=== PATIENT | female | born 1945 | race Caucasian/White ===

== ENCOUNTER 2019-06-02 08:25 | Outpatient (CLI) | payer MEDICARE, BC, SELFPAY ==
--- NOTE | 2019-06-02 08:40 | MM_ITS ---
WS: [id number] BILATERAL DIGITAL SCREENING MAMMOGRAPHY WITH CAD CLINICAL INFORMATION: SCREENING HISTORY: Screening mammogram. No current complaints. COMPARISON: TECHNIQUE: Bilateral CC and MLO views. FINDINGS: Scattered fibroglandular densities bilaterally. Stable bilateral punctate and clustered calcification s. No suspicious focal mass, asymmetry, calcifications, or architectural distortion. No evidence of m alignancy. MM/[id number] IMPRESSION: BI-RADS: 2-Benign FOLLOW UP: 1 Year Follow-up Recommend return to annual screening mammography.
== END 2019-06-02 08:26 | disposition home or self-care (01) ==
LOC: RADSHAW 08:36
PROVIDERS: Family Provider Family Medicine; PCP Family Medicine; Visit Provider Family Medicine
DX: Z12.31 Encounter for screening mammogram for malignant neoplasm of breast (principal)
CPT/HCPCS: 77067

== ENCOUNTER → 2020-12-13 09:55 | Outpatient (BNVA) | payer MEDICARE, SELFPAY | PROVIDERS: Family Provider Family Medicine; PCP Family Medicine; Visit Provider Nurse Practitioner Family | DX: Z20.822 Contact with and (suspected) exposure to COVID-19 (principal) | CPT/HCPCS: 87635 ==

== ENCOUNTER → 2021-10-31 16:25 | Outpatient (BNVA) | payer MEDICARE, SELFPAY | PROVIDERS: Family Provider Family Medicine; PCP Family Medicine; Visit Provider Family Medicine | DX: Z00.00 Encounter for general adult medical examination without abnormal findings (principal) | CPT/HCPCS: 80053; 80061; 85025 ==

== ENCOUNTER → 2021-11-20 12:21 | Outpatient (BNVA) | payer MEDICARE, SELFPAY | PROVIDERS: Family Provider Family Medicine; PCP Family Medicine; Visit Provider Family Medicine | DX: R53.83 Other fatigue (principal); J06.9 Acute upper respiratory infection, unspecified | CPT/HCPCS: 80053; 83880; 84443; 85025; 86140 ==

== ENCOUNTER 2021-11-25 12:51 | Outpatient (CLI) | payer MEDICARE, SELFPAY ==
--- NOTE | 2021-11-25 13:02 | MM_ITS ---
WS: [id number] BILATERAL 3D TOMOSYNTHESIS DIGITAL SCREENING MAMMOGRAPHY WITH CAD CLINICAL INFORMATION: SCREENING HISTORY: Screening mammogram. No current complaints. COMPARISON: June 02, 2019 TECHNIQUE: Bilateral CC and MLO views. FINDINGS: Scattered fibroglandular densities bilaterally. Punctate and lucent centered calcifications. Stable C lustered calcifications. No suspicious focal mass, asymmetry, calcifications, or architectural distor tion. No evidence of malignancy. MM/[id number] IMPRESSION: BI-RADS: 2-Benign FOLLOW UP: 1 Year Follow-up Recommend return to annual screening mammography.
== END 2021-11-25 12:52 | disposition home or self-care (01) ==
LOC: RAD 12:53
PROVIDERS: PCP Family Medicine; Visit Provider Family Medicine
DX: Z12.31 Encounter for screening mammogram for malignant neoplasm of breast (principal)
CPT/HCPCS: 77063; 77067

== ENCOUNTER → 2022-04-18 16:40 | Outpatient (BNVA) | payer MEDICARE, SELFPAY | PROVIDERS: PCP Family Medicine; Visit Provider Emergency Medicine | DX: N10 Acute pyelonephritis (principal) | CPT/HCPCS: 81000 ==

== ENCOUNTER 2022-04-19 10:34 | Emergency (ER) | payer MEDICARE, SELFPAY ==
[2022-04-19] VITALS (8 sets, daily range): BP systolic 104–129; BP diastolic 57–69; PULSE 79; RESP 14; TEMP 36.6; O2SAT 95–100; BMI 24.0
--- NOTE | 2022-04-19 10:57 | W.ED.BACK ---
HPI - Back Pain/Injury General: Chief Complaint: Back Pain/Injury Stated Complaint: abd and lower back pain Time Seen by Provider: 04/19/22 10:53 History of Present Illness: 76 year old female presents to the ER with a chief complaint of having ongoing right-sided flank pain and back pain is rating to her right abdomen patient reports having prior history hysterectomy reports she still has her gallbladder and her appendix she reports generalized abdominal pain was located right side the abdomen and the right lateral flank she has reports that reassessing blood work primary care doctor had urinalysis obtained with a questionable urinary tract infection. Patient does not report having any known history of kidney stones reports the pain does come and gone waves at times reports he is currently pain-free with the pain he reports some nausea she also reports he is dealt with some nonbloody diarrhea this been ongoing for the last 2 days patient does not endorse having recent fevers or chills reports generalize malaise and fatigue with appetite reduction patient presents to the ER for further assessment and management Associated symptoms: Reports abdominal pain, fatigue and vomiting; Deny chills or fever(s) Review of Systems General: Reports: 10 or more systems reviewed and unremarkable except in HPI and below Const: Reports: change in appetite and fatigue; Denies: fever(s), chills or malaise Eyes: Denies: change in vision or blurry vision Card: Denies: chest pain or palpitations Resp: Denies: dyspnea or productive cough GI: Reports: abdominal pain, vomiting and diarrhea; Denies: hematochezia : Reports: flank pain and urinary frequency Musc: Denies: extremity pain or extremity swelling Skin/Breast: Denies: rash or pruritus Neuro: Denies: headache(s) Psych: Denies: anxiety or depression Wisam/Lymph: Denies: easy bleeding All/Imm: Denies: urticaria, throat swelling or facial swelling PFSH ED PFSH: Medical History Arthritis Depression Hypertension Surgical History History of hysterectomy Family History Denies family history of Diabetes Social History Smoking and tobacco status: never smoked Alcohol intake: never Household members: other Details: grandson Marital status: / Current occupational status: retired Physical Exam Const: COMMON NORMALS: no acute distress (Appears somewhat anxious on exam), patient oriented x3 and healthy appearing HENMT: COMMON NORMALS: normocephalic and atraumatic HEAD & SCALP: normocephalic and atraumatic Eye: COMMON NORMALS: Equal, round and reactive pupils present and EOMs intact bilaterally PUPIL: Yes Equal, round and reactive pupils present Neck/C-Spine: COMMON NORMALS: full ROM, supple and no JVD Lymph: LYMPHATIC: no lymphadenopathy noted Chest: COMMONS NORMALS: normal inspection of the chest and normal palpation of entire chest wall Resp: COMMON NORMALS: normal respiratory effort, No retractions and clear to auscultation bilaterally EFFORT & INSPECTION: Yes able to speak in complete sentences and Yes symmetric chest movement AUSCULTATION: clear to auscultation bilaterally Cardio: COMMON NORMALS: no JVD, regular rate and regular rhythm RATE: regular rate RHYTHM: regular rhythm GI: COMMON NORMALS: Normal to inspection, nondistended, normoactive bowel sounds present and Soft to palpation INSPECTION: Yes normal to inspection PALPATION: Yes Soft to palpation OTHER: Tenderness appreciated to the right to the abdomen with moving across to the right lateral flank otherwise soft nontender : COMMON NORMALS: Yes no CVA tenderness BLADDER/KIDNEY EXAM: Yes no CVA tenderness Back/Pelvis: COMMON NORMALS: no CVA tenderness Extremity: COMMON NORMALS: normal to inspection and full ROM Neuro: COMMON NORMALS: patient oriented x3, CN's II-XII intact bilaterally, moves all extremities and no focal motor deficits Psych: COMMON NORMALS: mental status grossly normal, Normal thought process present, cooperative and normal affect THOUGHT PROCESS: Normal thought process present Skin: COMMON NORMALS: no rashes or lesions noted GENERAL SKIN EXAM: no rashes or lesions noted Course Vital Signs: Vital signs: Vital Signs Temperature 97.8 F 04/19/22 10:45 Pulse Rate 79 04/19/22 10:45 Respiratory Rate 14 04/19/22 10:45 Blood Pressure 119/58 04/19/22 12:00 Pulse Oximetry 96 04/19/22 12:00 Oxygen Delivery Me thod 04/19/22 10:45 MDM - Back Pain/Injury Medical Decision Making Due to the patient said to be condition I will be established labwork and imaging will be obtained we will continue to follow along concerns of kidney disease versus colitis versus other is prominent we will continue to follow. Patient was found to have acute gallbladder disease as well as a urinary tract infection as well as a pancreatic cyst patient was advised of these findings advised that she should further follow-up with her primary care doctor in 3 to 5 days in which she was advised to return the interim if any of her symptoms persist or worse prior to subsequent discharge the patient was provided a dose of Rocephin as well as provide additional medication for her associated symptoms. Labs 04/19/22 11:10 04/19/22 11:10 Radiology Impressions Abdomen/Pelvis CT 04/19/22 12:28 IMPRESSION: 1. Contracted gallbladder with cholelithiasis and borderline wall thickening. 2. Additional findings as described above. Laboratory Results WBC 8.6 10^3/uL (4.0-10.0) 04/19/22 11:10 RBC 4.24 10^6/uL (4.1-5.3) 04/19/22 11:10 Hgb 13.7 g/dL (11.5-15.3) 04/19/22 11:10 Hct 40.0 % (37.0-47.0) 04/19/22 11:10 MCV 94.3 fl (81-99) 04/19/22 11:10 MCH 32.3 pg (28.0-34.0) 04/19/22 11:10 MCHC 34.3 g/dL (30.0-36.0) 04/19/22 11:10 RDW 11.4 % (12.1-15.1) L 04/19/22 11:10 Plt Count 288 10^3/cmm (130-400) 04/19/22 11:10 MPV 9.5 fL (7.4-10.4) 04/19/22 11:10 Neut % (Auto) 53.6 % 04/19/22 11:10 Lymph % (Auto) 34.8 % 04/19/22 11:10 Coffey % (Auto) 9.5 % 04/19/22 11:10 Eos % (Auto) 1.2 % 04/19/22 11:10 Baso % (Auto) 0.7 % 04/19/22 11:10 Neut # (Auto) 4.60 10^3/uL (1.8-7.7) 04/19/22 11:10 Lymph # (Auto) 3.0 10^3/uL (0.8-4.8) 04/19/22 11:10 Coffey # (Auto) 0.8 10^3/uL (0.2-0.9) 04/19/22 11:10 Eos # (Auto) 0.1 10^3/uL (0.0-0.8) 04/19/22 11:10 Baso # (Auto) 0.1 10^3/uL (0.0-0.1) 04/19/22 11:10 Nucleated RBC % (auto) 0 % 04/19/22 11:10 Nucleated RBCs # 0.0 /100WBC 04/19/22 11:10 Sodium 137 mmol/L (136-145) 04/19/22 11:10 Potassium 3.7 mmol/L (3.5-5.1) 04/19/22 11:10 Chloride 97 mmol/L (98-107) L 04/19/22 11:10 Carbon Dioxide 28 mmol/L (22-29) 04/19/22 11:10 Anion Gap 15.7 (5-19) 04/19/22 11:10 BUN 12 mg/dL (8-23) 04/19/22 11:10 Creatinine 0.9 mg/dL (0.5-0.9) 04/19/22 11:10 GFR Calculation Not Reportable 04/19/22 11:10 Glucose 95 mg/dL (65-115) 04/19/22 11:10 Calculated Osmolality 284 mOsm/kg (285-295) L 04/19/22 11:10 Calcium 9.8 mg/dL (8.5-10.5) 04/19/22 11:10 Total Bilirubin 0.3 mg/dL (0.15-1.2) 04/19/22 11:10 AST 26 U/L (0-32) 04/19/22 11:10 ALT 15 U/L (0-33) 04/19/22 11:10 Alkaline Phosphatase 52 U/L (35-105) 04/19/22 11:10 C-Reactive Protein 3.0 mg/L (0.0-4.9) 04/19/22 11:10 Total Protein 6.9 g/dL (6.6-8.7) 04/19/22 11:10 Albumin 4.2 g/dL (3.5-5.2) 04/19/22 11:10 Globulin 2.7 g/dL (1.3-4.6) 04/19/22 11:10 Urine Color Straw (Yellow) 04/19/22 12:40 Urine Appearance Clear (CLEAR) 04/19/22 12:40 Urine pH 7 (5-7) 04/19/22 12:40 Ur Specific Rolette 1.005 (1.005-1.030) 04/19/22 12:40 Urine Protein Neg (Negative) 04/19/22 12:40 Urine Glucose (UA) Norm (Normal) 04/19/22 12:40 Urine Ketones Negative (Negative) 04/19/22 12:40 Urine Blood 2+ (Negative) H 04/19/22 12:40 Urine Nitrate Negative (Negative) 04/19/22 12:40 Urine Bilirubin Neg (Negative) 04/19/22 12:40 Urine Urobilinogen Norm mg/dL (Negative) 04/19/22 12:40 Ur Leukocyte Esterase 2+ (Negative) H 04/19/22 12:40 Urine RBC 0-4 /hpf (0-2) H 04/19/22 12:40 Urine WBC 0-4 /hpf (0-5) H 04/19/22 12:40 Ur Squamous Epith Cells 0-4 /hpf (0-5) H 04/19/22 12:40 Amorphous Sediment 1+ /hpf 04/19/22 12:40 Urine Bacteria Trace /hpf (NONE) 04/19/22 12:40 Discharge Plan Discharge Patient Disposition: Home Clinical Impression: Cholelithiasis, Disease of gallbladder, Pancreas cyst, Urinary tract infection Condition: Stable Prescriptions: New Ultram 50 mg tablet 50 mg PO Q8H PRN (Reason: pain) Qty: 15 0RF ondansetron 4 mg tablet,disintegrating 4 mg PO Q8H PRN (Reason: nausea and vomiting) Qty: 20 0RF ciprofloxacin HCl 500 mg tablet 500 mg PO Q12H Qty: 7 0RF No Action lisinopril 20 mg tablet 20 mg PO DAILY hydrochlorothiazide 25 mg tablet 25 mg PO DAILY simvastatin 5 mg tablet 5 mg PO DAILY aspirin 81 mg tablet,delayed release (DR/EC) 81 mg PO DAILY multivitamin Tablet 1 tab PO DAILY omega-3 fatty acids [Fish Oil Concentrate] 1,000 mg capsule 1,000 mg PO DAILY temazepam 15 mg capsule 15 mg PO .HS Qty: 30 5RF sulfamethoxazole-trimethoprim [Bactrim DS] 800-160 mg tablet 1 tab PO BID 7 Days Qty: 14 0RF Discharge Orders: Discharge ED (Routine); Ordered 04/19/22 Ordered By: Varun Waldron Referrals: Jesus Joe MD [Primary Care Provider] - 4-7 days Discharge Diet: Low Fat Discharge Activity: Increase activity as tolerated Patient Instructions: Biliary Colic (ED), Gallstones (ED), Low Fat Diet (ED), Opioid Safety, Pain Management, Urinary Tract Infection - Women Activity Restrictions/Additional Instructions: Please follow-up with your primary care doctor in 3 to 5 days, take medications as prescribed and please return the interim if any of your symptoms persist or worse. Coding Level of Care Code ED Showroom Consultant for Malu Fwd Exam Comprehensive
[2022-04-19 11:19] LABS: Basophils # 0.1 10^3/uL (0.0-0.1); Basophils % 0.7 %; Eosinophils # 0.1 10^3/uL (0.0-0.8); Eosinophils % 1.2 %; Hemoglobin 13.7 g/dL (11.5-15.3); Lymphocytes % 34.8 %; Mean Corpuscular HGB Conc 34.3 g/dL (30.0-36.0); Mean Corpuscular Hemoglobin 32.3 pg (28.0-34.0); Mean Corpuscular Volume 94.3 fl (81-99); Mean Platelet Volume 9.5 fL (7.4-10.4); Monocytes # 0.8 10^3/uL (0.2-0.9); Monocytes % 9.5 %; Neutrophils % 53.6 %; Nucleated Red Blood Cells % 0 %; Platelet Count 288 10^3/cmm (130-400); Red Blood Count 4.24 10^6/uL (4.1-5.3); Red Cell Distribution Width 11.4 % (12.1-15.1); White Blood Count 8.6 10^3/uL (4.0-10.0)
[2022-04-19] MEDS: ketorolac 30 mg/mL INJ 15 MG IVP (11:25)
[2022-04-19] MEDS: sodium chloride 0.9% 500 ML IV (11:26)
[2022-04-19 11:36] LABS: Alanine Aminotransferase 15 U/L (0-33); Albumin Level 4.2 g/dL (3.5-5.2); Alkaline Phosphatase 52 U/L (35-105); Aspartate Amino Transferase 26 U/L (0-32); Blood Urea Nitrogen 12 mg/dL (8-23); Calcium 9.8 mg/dL (8.5-10.5); Carbon Dioxide 28 mmol/L (22-29); Chloride 97 mmol/L (98-107); Globulin 2.7 g/dL (1.3-4.6); Glucose 95 mg/dL (65-115); Osmolality Calculated 284 mOsm/kg (285-295); Sodium 137 mmol/L (136-145); Total Bilirubin 0.3 mg/dL (0.15-1.2); Total Protein 6.9 g/dL (6.6-8.7)
[2022-04-19 11:44] LABS: Anion Gap 15.7 (5-19); Potassium 3.7 mmol/L (3.5-5.1)
--- NOTE | 2022-04-19 12:28 | CTR_ITS ---
PROCEDURE INFORMATION: Exam: CT Abdomen And Pelvis With Contrast Exam date and time: 04/19/2022 12:48 PM Age: 76 years old Clinical indication: Abdominal pain; Flank; Right; Prior surgery; Surgery type: Hysto; Additional info: R flank and rlq abdominal pain TECHNIQUE: Imaging protocol: Computed tomography of the abdomen and pelvis with contrast. Radiation optimization: All CT scans at this facility use at least one of these dose optimization techniques: automated exposure control; mA and/or kV adjustment per patient size (includes targeted exams where dose is matched to clinical indication); or iterative reconstruction. Contrast material: OMNI 350; Contrast volume: 100 ml; Contrast route: INTRAVENOUS (IV); COMPARISON: NM hepatobiliary w phar* [id number] 02/22/2016 7:55 AM RADIATION DOSE METRICS: Total DLP (mGy-cm): 360.01 FINDINGS: Lungs: Hyperinflation, interstitial prominence, and serpiginous subpleural calcifications in the right lower lobe. Liver: Focal fatty infiltration of the liver. Gallbladder and bile ducts: Contracted gallbladder with cholelithiasis and borderline wall thickening. Pancreas: 12 mm cystic structure in the pancreatic head. No pancreatic ductal dilatation. Spleen: No splenomegaly. Adrenal glands: Unremarkable adrenals. Kidneys and ureters: Normal renal morphology. No urolithiasis or hydronephrosis. Stomach and bowel: Fluid-filled stomach. Scattered diverticula. Sigmoid colon wall thickening without infiltration of pericolonic fat. Appendix: No acute appendicitis. Intraperitoneal space: No significant free fluid. Vasculature: Prominent vascular calcification. 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 No abdominal aortic aneurysm. Lymph nodes: Subcentimeter lymph nodes. Urinary bladder: Mild bladder wall thickening. Reproductive: Status post hysterectomy. Bones/joints: Degenerative change. Soft tissues: Unremarkable. CT/CT abdomen pelvis w con* [id number] IMPRESSION: 1. Contracted gallbladder with cholelithiasis and borderline wall thickening. 2. Additional findings as described above.
[2022-04-19 13:13] LABS: Add Urine Microscopic? YES; Bilirubin Urine Neg (Negative); Blood Urine 2+ (Negative); Glucose Urine UA Norm (Normal); Ketones Urine Negative (Negative); Leukocyte Esterase Urine 2+ (Negative); Nitrate Urine Negative (Negative); Protein Urine Neg (Negative); Specific Gravity, Urine 1.005 (1.005-1.030); Urine Appearance Clear (CLEAR); Urine Color Straw (Yellow); Urobilinogen Urine Norm (Negative); pH Urine 7 (5-7)
[2022-04-19 13:14] LABS: Add Urine Culture? No; Amorphous Sediment Urine 1+ /hpf; Bacteria Urine TRACE /hpf; RBC Urine 0-4 /hpf (0-2); Squamous Epithelial Cell Urine 0-4 /hpf (0-5); WBC Urine 0-4 /hpf (0-5)
[2022-04-19] MEDS: cefTRIAXone 1,000 MG in sodium chloride 0.9% (plus) 50 ML 100 MG IV (14:04)
== END 2022-04-19 14:40 | disposition home or self-care (01) ==
PROVIDERS: Emergency Provider Emergency Medicine; PCP Family Medicine
DX: K80.20 Calculus of gallbladder without cholecystitis without obstruction (principal); K82.9 Disease of gallbladder, unspecified; K86.2 Cyst of pancreas; N39.0 Urinary tract infection, site not specified; Z79.82 Long term (current) use of aspirin; I10 Essential (primary) hypertension
CPT/HCPCS: 74177; 80053; 81001; 85025; 86140; 96361; 96374; 96375; 99285; J0696; J1885; J7040; Q9967

== ENCOUNTER → 2022-04-24 12:50 | Outpatient (BNVA) | payer MEDICARE, SELFPAY | PROVIDERS: PCP Family Medicine; Visit Provider Family Medicine | DX: R31.9 Hematuria, unspecified (principal); K80.20 Calculus of gallbladder without cholecystitis without obstruction; K86.2 Cyst of pancreas | CPT/HCPCS: 81003 ==

== ENCOUNTER → 2022-05-13 15:24 | Outpatient (BNVA) | payer MEDICARE, SELFPAY | PROVIDERS: PCP Family Medicine; Visit Provider Family Medicine | DX: R30.0 Dysuria (principal); R53.81 Other malaise; R53.83 Other fatigue; I10 Essential (primary) hypertension | CPT/HCPCS: 87086 ==

== ENCOUNTER → 2022-08-14 10:08 | Outpatient (BNVA) | payer MEDICARE, SELFPAY | PROVIDERS: PCP Family Medicine; Visit Provider Family Medicine | DX: R10.9 Unspecified abdominal pain (principal); I10 Essential (primary) hypertension; R53.81 Other malaise; R53.83 Other fatigue; F32.A Depression, unspecified | CPT/HCPCS: 80053; 84443; 85025; 86140; 86160; 86162; 86235; 86255; 86376 ==

== ENCOUNTER 2022-10-20 13:46 | Outpatient (CLI) | payer MEDICARE, SELFPAY ==
--- NOTE | 2022-10-20 14:00 | XR_ITS ---
WS: [id number] DEXA (DUAL ENERGY X-RAY ABSORPTIOMETRY) Bone mineral density was performed using a [employer]opus[employer] machine. HISTORY: screening COMPARISON: None available. Lumbar spine BMD (L1-L4): 0.838 g/cm2 T score: -2.9 Z score: -0.8 Total hip BMD: Left: 0.764 g/cm2. T score: -1.9 Z score: 0.0 Right: 0.825 g/cm2. T score: -1.4 Z score: 0.5 10 year probability of a major osteoporotic fracture is 25.8%. XR/XR DEXA axial skeleton* [id number] IMPRESSION: OSTEOPOROSIS based upon the WHO classification for females.
== END 2022-10-20 13:47 | disposition home or self-care (01) ==
LOC: RAD 13:50
PROVIDERS: PCP Family Medicine; Visit Provider Family Medicine
DX: Z13.820 Encounter for screening for osteoporosis (principal); M81.0 Age-related osteoporosis without current pathological fracture
CPT/HCPCS: 77080

== ENCOUNTER → 2023-02-19 15:22 | Outpatient (BNVA) | payer MEDICARE, SELFPAY | PROVIDERS: PCP Family Medicine; Visit Provider Family Medicine | DX: R53.83 Other fatigue (principal); I10 Essential (primary) hypertension; D49.0 Neoplasm of unspecified behavior of digestive system; R10.9 Unspecified abdominal pain | CPT/HCPCS: 80053; 82607; 83690; 84443; 85025; 86140 ==

== ENCOUNTER 2023-05-16 13:24 | Emergency (ER) | payer MEDICARE, SELFPAY ==
[2023-05-16 13:31] VITALS: BP 176/94; PULSE 77; RESP 24; TEMP 36.7; O2SAT 100; BMI 22.1
--- NOTE | 2023-05-16 13:48 | ED_ITS ---
HPI - Weakness 2 General: Chief complaint: Weakness Stated complaint: Headache Time Seen by Provider: 05/16/23 13:42 Source: patient Mode of arrival: ambulatory History of Present Illness: Patient complaining of generalized weakness, with numbness bilateral lower extremities as well as some perioral numbness.. No chest discomfort. Denies fever sweats or chills. No difficulty speech or swallowing no focal neurologic deficits. Patient is hyperventilating MD Complaint: generalized weakness Onset (ago): hour(s) Associated symptoms: Denies chest pain, chills, confusion, melena, decreased appetite, diaphoresis, dysuria, easy bruising, fever(s), headache(s), myalgias, nausea, rash, short of breath, syncope or vomiting Review of Systems 2 Const: Denies: fever(s), chills or diaphoresis Card: Denies: chest pain or syncope Resp: Denies: dyspnea GI: Denies: abdominal pain, nausea, vomiting or melena : Denies: dysuria, urinary frequency or urinary urgency Musc: Denies: neck pain or back pain Skin/Breast: Denies: rash Neuro: Denies: headache(s) or confusion Wisam/Lymph: Denies: easy bruising PFSH ED 2 PFSH: Medical History Depression Hypertension Arthritis Surgical History Hx of cholecystectomy 06/04/2022 History of hysterectomy Family History Denies family history of Diabetes Social History Smoking and tobacco/nicotine status: never used tobacco/nicotine Alcohol intake: never Substance/Drug Use: never Household members: other Details: grandson Marital status: / Current occupational status: retired Physical Exam 2 Const: COMMON NORMALS: no acute distress GENERAL APPEARANCE: cooperative and comfortable ORIENTATION/CONSCIOUSNESS: Yes awake, Yes oriented to person, Yes oriented to place and Yes oriented to time HENMT: COMMON NORMALS: normocephalic, atraumatic and hearing grossly normal bilaterally HEAD & SCALP: normocephalic and atraumatic Resp: COMMON NORMALS: normal respiratory effort, No retractions, No use of accessory muscles and clear to auscultation bilaterally AUSCULTATION: clear to auscultation bilaterally Cardio: COMMON NORMALS: regular rate, regular rhythm and No murmurs present (Cardio) RATE: regular rate RHYTHM: regular rhythm GI: COMMON NORMALS: Soft to palpation and No hepatosplenomegaly present A USCULTATION: Yes normoactive bowel sounds PALPATION: Yes Soft to palpation, No Tenderness to palpation present (GI), No Guarding due to palpation present (GI) and Yes No hepatosplenomegaly present Extremity: COMMON NORMALS: normal to inspection, capillary refill normal, no clubbing, cyanosis or edema, no calf tenderness and no pedal edema Neuro: SENSORIUM/ORIENTATION: Yes oriented to person, Yes oriented to place and Yes oriented to time Skin: COMMON NORMALS: no rashes or lesions noted GENERAL SKIN EXAM: no rashes or lesions noted Course 2 Vital Signs: Vital signs: Vital Signs Temperature 98.1 F 05/16/23 13:31 Pulse Rate 90 05/16/23 17:49 Respiratory Rate 18 05/16/23 17:49 Blood Pressure 154/92 05/16/23 17:49 Pulse Oximetry 99 05/16/23 17:49 Oxygen Delivery Me thod Room Air 05/16/23 15:53 MDM - Weakness Medical Decision Making No focal neurologic deficits are noted patient has bilateral reports of numbness blood gas shows hyperventilation CT head negative patient improved with Ativan we will discharge patient home she has clonazepam she has been given previously we will give her Ativan to use as needed follow-up with primary care return if has further problems Medical Records I reviewed the patient's medical records. Lab Data I reviewed the patient's lab results. 05/16/23 15:21 05/16/23 15:[address] 05/16/23 13:58 IMPRESSION: 1. No acute intracranial findings. 2. 9 mm superficial right parotid structure may represent a lymph node, although no definite fatty hilum visualized and mildly larger than expected. Recommend further evaluation with contrast-enhanced neck CT or ultrasound. Chest X-Ray 05/16/23 15:12 IMPRESSION: No acute findings. Laboratory Results WBC 9.00 10^3/uL (3.29-11.43) 05/16/23 15:21 RBC 4.22 10^6/uL (3.85-5.65) 05/16/23 15:21 Hgb 13.40 g/dL (11.27-16.99) 05/16/23 15:21 Hct 38.9 % (36-47) 05/16/23 15:21 MCV 92.2 fl (85-98) 05/16/23 15:21 MCH 31.8 pg (27-33) 05/16/23 15:21 MCHC 34.4 g/dL (30-55) 05/16/23 15:21 RDW 11.3 % (12.1-15.1) L 05/16/23 15:21 Plt Count 269 10^3/cmm (157-399) 05/16/23 15:21 MPV 9.3 fL (7.4-10.4) 05/16/23 15:21 Neut % (Auto) 50.1 % 05/16/23 15:21 Lymph % (Auto) 38.3 % 05/16/23 15:21 [place] % (Auto) 9.6 % 05/16/23 15:21 Eos % (Auto) 1.3 % 05/16/23 15:21 Baso % (Auto) 0.6 % 05/16/23 15:21 Neut # (Auto) 4.51 10^3/uL (1.8-7.7) 05/16/23 15:21 Lymph # (Auto) 3.5 10^3/uL (0.8-4.8) 05/16/23 15:21 [place] # (Auto) 0.9 10^3/uL (0.2-0.9) 05/16/23 15:21 Eos # (Auto) 0.1 10^3/uL (0.0-0.8) 05/16/23 15:21 Baso # (Auto) 0.1 10^3/uL (0.0-0.1) 05/16/23 15:21 Nucleated RBC % (auto) 0 % 05/16/23 15:21 Nucleated RBCs # 0.0 /100WBC 05/16/23 15:21 Specimen Type Arterial 05/16/23 13:59 Sample Site Radial, left 05/16/23 13:59 ABG pH 7.55 (7.35-7.45) H 05/16/23 13:59 ABG pCO2 27.8 mmHg (35-45) L 05/16/23 13:59 ABG pO2 95.9 mmHg (80.0-100.0) 05/16/23 13:59 ABG PO2/FiO2 Ratio 0 05/16/23 13:59 ABG HCO3 24.5 mmol/L (22-26) 05/16/23 13:59 ABG O2 Saturation 99.3 05/16/23 13:59 ABG Base Excess 3.2 mmol/L (-2.0-2.0) H 05/16/23 13:59 Rafy Test Pos 05/16/23 13:59 A-a O2 Gradient 2.1 mmHg (5-10) L 05/16/23 13:59 Hematocrit 42.3 % (37-47) 05/16/23 13:59 Hgb O2 Saturation 97.3 % (95-100) 05/16/23 13:59 Carboxyhemoglobin 1.2 %THgb (0.4-20.1) 05/16/23 13:59 Methemoglobin 0.8 % (0.4-1.5) 05/16/23 13:59 Total Hemoglobin 13.8 g/dL (12-16) 05/16/23 13:59 Sodium 137.0 mmol/L (131-143) 05/16/23 13:59 Potassium 3.1 mmol/L (3.5-5.0) L 05/16/23 13:59 Glucose 114.0 mg/dL (70-115) 05/16/23 13:59 Ionized Calcium 1.2 mmol/L (1.1-1.4) 05/16/23 13:59 O2 Delivery Device Room air 05/16/23 13:59 FiO2 21.0 % 05/16/23 13:59 Laminating Machine Operator Helper ID Walci 05/16/23 13:59 Sodium 138 mmol/L (136-145) 05/16/23 15:21 Potassium 3.5 mmol/L (3.5-5.1) 05/16/23 15:21 Chloride 101 mmol/L (98-107) 05/16/23 15:21 Carbon Dioxide 24 mmol/L (22-29) 05/16/23 15:21 Anion Gap 16.5 (5-19) 05/16/23 15:21 BUN 14 mg/dL (8-23) 05/16/23 15:21 Creatinine 0.6 mg/dL (0.5-0.9) 05/16/23 15:21 GFR Calculation Not Reportable 05/16/23 15:21 Glucose 96 mg/dL (65-115) 05/16/23 15:21 Calculated Osmolality 286 mOsm/kg (285-295) 05/16/23 15:21 Calcium 9.7 mg/dL (8.5-10.5) 05/16/23 15:21 Total Bilirubin 0.4 mg/dL (0.15-1.2) 05/16/23 15:21 AST 21 U/L (0-32) 05/16/23 15:21 ALT 15 U/L (0-33) 05/16/23 15:21 Alkaline Phosphatase 58 U/L (35-105) 05/16/23 15:21 Total Protein 6.8 g/dL (6.6-8.7) 05/16/23 15:21 Albumin 3.9 g/dL (3.5-5.2) 05/16/23 15:21 Globulin 2.9 g/dL (1.3-4.6) 05/16/23 15:21 All radiology interpretation(s) finalized by discharge Discharge Plan Discharge Patient Disposition: Home Clinical Impression: Hyperventilation Condition: Stable Prescriptions: New lorazepam 2 mg tablet 1 - 2 mg PO Q8H PRN (Reason: anxiety) Qty: 14 0RF No Action aspirin 81 mg tablet,delayed release (DR/EC) 81 mg PO QAM multivitamin Tablet 1 tab PO DAILY PRN (Reason: unknown) clonazepam [Klonopin] 0.5 mg tablet 0.25 mg PO BID PRN (Reason: stress) Qty: 30 3RF Fish Oil Concentrate 1,000 mg Capsule 1,000 mg PO QAM simvastatin 10 mg tablet 10 mg PO EVERY OTHER DAY Glucosamine Chondroitin 550-30-1 mg Capsule 1 cap PO QAM lisinopril 20 mg tablet 20 mg PO QAM temazepam 15 mg capsule 15 mg PO BEDTIME pantoprazole 40 mg tablet,delayed release (DR/EC) 40 mg PO BID PRN (Reason: Acid Reflux) hydrochlorothiazide 25 mg tablet 25 mg PO QAM Discharge Orders: Discharge ED (Routine); Ordered 05/16/23 Ordered By: Elton Fong Referrals: Jesus Joe MD [Primary Care Provider] - Discharge Diet: Usual diet Discharge Activity: Increase activity as tolerated Patient Instructions: Opioid Safety, Pain Management Activity Restrictions/Additional Instructions: Thank you for choosing [facility] for your healthcare needs today. Please realize this is an emergency room and that we are providing you with a medical screening exam and this may not be complete and all inclusive of all the testing and or work up that you may need to determine your ailment or severity of your illness. It is very important that you follow up as instructed or that you return to the Emergency Department should you have concerns or if your condition changes or worsens in any way. Follow-up with Dr. Dc in this coming week. Coding Level of Care Code ED Electrification Adviser for Malu Simental
--- NOTE | 2023-05-16 13:58 | CTR_ITS ---
PROCEDURE INFORMATION: Exam: CT Head Without Contrast Exam date and time: 05/16/2023 2:14 PM Age: 78 years old Clinical indication: Other: Numbness in extremities and on the R side of face TECHNIQUE: Imaging protocol: Computed tomography of the head without contrast. Radiation optimization: All CT scans at this facility use at least one of these dose optimization techniques: automated exposure control; mA and/or kV adjustment per patient size (includes targeted exams where dose is matched to clinical indication); or iterative reconstruction. COMPARISON: CT head wo con* [id number] 06/08/2018 6:08 PM RADIATION DOSE METRICS: Total DLP (mGy-cm): 990.28 FINDINGS: Brain: Diffuse cerebral atrophy, consistent with patient's age. No hemorrhage. Preserved dunham-white matter differentiation. Mild bilateral cerebral white matter hypodensities compatible with chronic microvascular ischemic change. No mass effect. Cerebral ventricles: Ventricles are in proportion to the degree of atrophy. Paranasal sinuses: Visualized sinuses are unremarkable. No fluid levels. Mastoid air cells: Visualized mastoid air cells are well aerated. Orbital cavities: Bilateral lens replacement. Parotid and submandibular glands: 9 x 7 mm ovoid superficial right parotid soft tissue focus. Bones/joints: Unremarkable. No acute fracture. Soft tissues: Unremarkable. Vasculature: Bilateral ICA and vertebral artery calcifications. CT/CT head wo con* [id number] IMPRESSION: 1. No acute intracranial findings. 2. 9 mm superficial right parotid structure may represent a lymph node, although no definite fatty hilum visualized and mildly larger than expected. Recommend further evaluation with contrast-enhanced neck CT or ultrasound.
[2023-05-16 14:10] LABS: ABG PCO2 27.8 mmHg (35-45); ABG PH Result 7.55 (7.35-7.45); Alveolar-Arterial Oxygen Gradi 2.1 mmHg (5-10); Arterial Blood Gas Hematocrit 42.3 % (37-47); Base Excess ABG 3.2 mmol/L (-2.0-2.0); Blood Gas Allen Test Pos; Blood Gas Sample Type Arterial; Carboxyhemoglobin 1.2 %THgb (0.4-20.1); HCO3 ABG 24.5 mmol/L (22-26); HGB O2 Sat 97.3 % (95-100); Ionized Calcium Level - ABG 1.2 mmol/L (1.1-1.4); Methemoglobin 0.8 % (0.4-1.5); Oxygen Saturation ABG 99.3; PO2 ABG 95.9 mmHg (80.0-100.0); Potassium Level - ABG 3.1 mmol/L (3.5-5.0); Total Hemoglobin 13.8 g/dL (12-16)
[2023-05-16 14:11] LABS: Blood Gas Operator Identificat WALCI; Blood Gas Sample Site Radial, left; Oxygen Device ROOM AIR; PO2 FiO2 Ratio Arterial Blood 0
[2023-05-16 14:49] VITALS: BP 204/117; PULSE 101; RESP 31; O2SAT 99
[2023-05-16 15:03] VITALS: BP 175/99; PULSE 90; RESP 21; O2SAT 99
--- NOTE | 2023-05-16 15:12 | XRR_ITS ---
PROCEDURE INFORMATION: Exam: XR Chest Exam date and time: 05/16/2023 3:23 PM Age: 78 years old Clinical indication: Patient HX: Headache; Cough; SOB TECHNIQUE: Imaging protocol: Radiologic exam of the chest. Views: 1 view. COMPARISON: CR XR chest 2V* [id number] 02/02/2017 5:57 PM FINDINGS: Lungs: Unremarkable. No consolidation. Pleural spaces: Unremarkable. No pleural effusion. No pneumothorax. Heart/Mediastinum: Unremarkable. No cardiomegaly. Vasculature: Aortic arch atherosclerotic calcification. Bones/joints: Unremarkable. Intraperitoneal space: Right upper abdomen surgical clips. XR/XR chest 1V portable [id number] IMPRESSION: No acute findings.
--- NOTE | 2023-05-16 15:14 | PC.PHAR ---
pt states she takes care of her own medications-pt states she ran out of her zocor-pt states she takes 10mg eod rx filled 03/31/23 30d/s 5mg daily pt states not taken since thursday-pt states she is still taking temazepam 15mg hs ext shows last filled 03/31/23 30d/s-pt states not taken her aspirin 81mg daily for 10 days
[2023-05-16 15:53] VITALS: BP 204/94; PULSE 78; RESP 16; O2SAT 100
[2023-05-16 15:54] LABS: Basophils # 0.1 10^3/uL (0.0-0.1); Basophils % 0.6 %; Eosinophils # 0.1 10^3/uL (0.0-0.8); Eosinophils % 1.3 %; Hematocrit 38.9 % (36-47); Lymphocytes # 3.5 10^3/uL (0.8-4.8); Lymphocytes % 38.3 %; Mean Corpuscular HGB Conc 34.4 g/dL (30-55); Mean Corpuscular Hemoglobin 31.8 pg (27-33); Mean Corpuscular Volume 92.2 fl (85-98); Mean Platelet Volume 9.3 fL (7.4-10.4); Monocytes # 0.9 10^3/uL (0.2-0.9); Monocytes % 9.6 %; Neutrophils # 4.51 10^3/uL (1.8-7.7); Neutrophils % 50.1 %; Nucleated Red Blood Cells % 0 %; Platelet Count 269 10^3/cmm (157-399); Red Blood Count 4.22 10^6/uL (3.85-5.65); Red Cell Distribution Width 11.3 % (12.1-15.1)
[2023-05-16] MEDS: hyDRALAzine 20 mg/mL INJ 1 mL IVP (16:13)
[2023-05-16 16:17] LABS: Alanine Aminotransferase 15 U/L (0-33); Albumin Level 3.9 g/dL (3.5-5.2); Alkaline Phosphatase 58 U/L (35-105); Anion Gap 16.5 (5-19); Aspartate Amino Transferase 21 U/L (0-32); Blood Urea Nitrogen 14 mg/dL (8-23); Calcium 9.7 mg/dL (8.5-10.5); Carbon Dioxide 24 mmol/L (22-29); Chloride 101 mmol/L (98-107); Globulin 2.9 g/dL (1.3-4.6); Glucose 96 mg/dL (65-115); Osmolality Calculated 286 mOsm/kg (285-295); Potassium 3.5 mmol/L (3.5-5.1); Sodium 138 mmol/L (136-145); Total Bilirubin 0.4 mg/dL (0.15-1.2); Total Protein 6.8 g/dL (6.6-8.7)
[2023-05-16] MEDS: LORazepam 2 mg Tablet PO (17:20)
[2023-05-16 17:49] VITALS: BP 154/92; PULSE 90; RESP 18; O2SAT 99
== END 2023-05-16 17:50 | disposition home or self-care (01) ==
PROVIDERS: Emergency Provider Family Medicine; PCP Family Medicine
DX: R06.4 Hyperventilation (principal); Z79.82 Long term (current) use of aspirin; I10 Essential (primary) hypertension
CPT/HCPCS: 36415; 36600; 70450; 71045; 80051; 80053; 82330; 82805; 85025; 96374; 99285; J0360

== ENCOUNTER → 2023-05-28 08:18 | Outpatient (BNVA) | payer MEDICARE, SELFPAY | PROVIDERS: PCP Family Medicine; Visit Provider Family Medicine | DX: K29.70 Gastritis, unspecified, without bleeding (principal); R10.9 Unspecified abdominal pain | CPT/HCPCS: 80053; 83690 ==

== ENCOUNTER 2023-05-31 14:55 | Emergency (ER) | payer MEDICARE, SELFPAY ==
[2023-05-31 15:04] VITALS: BP 148/87; PULSE 72; RESP 16; TEMP 36.4; O2SAT 100; BMI 22.1
--- NOTE | 2023-05-31 15:19 | ECG_ITS ---
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 Measurements Intervals Point Roberts Rate: 70 P: 44 OK: 117 QRS: 57 QRSD: 76 T: 69 QT: 393 QTc: 424 Interpretive Statements SINUS RHYTHM WITH SHORT OK INTERVAL SEPTAL MYOCARDIAL INFARCTION , OF INDETERMINATE AGE [40+ ms Q WAVE IN V1/V2] Compared to ECG 05/15/2016 01:20:17 Short OK interval now present Myocardial infarct finding now present Electronically Signed On 06-01-2023 9:47:51 SWING MANAGER by Agustin Macias M.D. [id number]
[2023-05-31 15:26] VITALS: BP 172/95; RESP 17; O2SAT 98
[2023-05-31 15:36] LABS: Basophils # 0.1 10^3/uL (0.0-0.1); Basophils % 0.9 %; Eosinophils # 0.1 10^3/uL (0.0-0.8); Eosinophils % 1.7 %; Hematocrit 41.3 % (36-47); Lymphocytes # 3.3 10^3/uL (0.8-4.8); Lymphocytes % 40.4 %; Mean Corpuscular HGB Conc 33.9 g/dL (30-55); Mean Corpuscular Hemoglobin 31.9 pg (27-33); Mean Corpuscular Volume 94.1 fl (85-98); Mean Platelet Volume 9.2 fL (7.4-10.4); Monocytes # 0.7 10^3/uL (0.2-0.9); Monocytes % 8.1 %; Neutrophils # 3.95 10^3/uL (1.8-7.7); Neutrophils % 48.7 %; Nucleated Red Blood Cells % 0 %; Platelet Count 243 10^3/cmm (157-399); Red Blood Count 4.39 10^6/uL (3.85-5.65); Red Cell Distribution Width 11.4 % (12.1-15.1); White Blood Count 8.12 10^3/uL (3.29-11.43)
[2023-05-31 15:56] LABS: Alanine Aminotransferase 14 U/L (0-33); Albumin Level 4.3 g/dL (3.5-5.2); Alkaline Phosphatase 57 U/L (35-105); Anion Gap 13.6 (5-19); Aspartate Amino Transferase 23 U/L (0-32); Blood Urea Nitrogen 15 mg/dL (8-23); Calcium 10.4 mg/dL (8.5-10.5); Carbon Dioxide 28 mmol/L (22-29); Chloride 97 mmol/L (98-107); Glucose 99 mg/dL (65-115); Lipase 32 U/L (13-60); Osmolality Calculated 281 mOsm/kg (285-295); Potassium 3.6 mmol/L (3.5-5.1); Sodium 135 mmol/L (136-145); Total Bilirubin 0.5 mg/dL (0.15-1.2); Total Protein 7.3 g/dL (6.6-8.7)
--- NOTE | 2023-05-31 16:05 | ED_ITS ---
Documented by User: Elton Fong DO 06/01/23 05:38 HPI - Abdominal Pain 2 General: Chief Complaint: Abdominal Pain Stated Complaint: back pain/abd pain Time Seen by Provider: 05/31/23 15:15 Source: patient Mode of arrival: ambulatory History of Present Illness: 78-year-old female presents emergency ro om with back pain that begins at about the level thoracolumbar junction radiates around to the epigastric area. She tracks it all the way back to last year in May she had a cholecystectomy and then in December of last year had a bile duct stent placed it was subsequently removed she says that she had problems beginning after that and early May of this year she continues to have trouble. She was seen in the ER on May 16 was sounded hyperventilating the rest of her labs were normal. She did have a pancreatic cyst that was 12 mm in size on the CT in April 2022. MD elicited complaint: abdominal pain Onset (ago): week(s) Pain Consistency: intermittent Location: Other (The level of the thoracolumbar junction) Quality: sharp Radiation: none Relieving factors: nothing Associated Symptoms: Denies anorexia, belching, bloating, change in bowel habits, change in stool character, chills, coffee ground emesis, constipation, GI cramping, diarrhea, dyspepsia, dysuria, excessive flatus, fever(s), heartburn, hematochezia, hematuria, hematemesis, fecal incontinence, loose stools, melena, nausea, poor appetite, syncope and vomiting Review of Systems 2 Const: Denies: fever(s) or chills Card: Denies: chest pain or syncope Resp: Denies: dyspnea GI: Denies: nausea, vomiting, hematemesis, coffee ground emesis, heartburn, diarrhea, constipation, bloating, GI cramping, belching, excessive flatus, fecal incontinence, change in bowel habits, change in stool character, hematochezia or melena : Denies: dysuria or hematuria Musc: Reports: back pain; Denies: neck pain Skin/Breast: Denies: rash PFSH ED 2 PFSH: Medical History Depression Hypertension Arthritis Surgical History Hx of cholecystectomy 06/04/2022 History of hysterectomy Family History Denies family history of Diabetes Social History Smoking and tobacco/nicotine status: never used tobacco/nicotine Alcohol intake: never Substance/Drug Use: never Household members: other Details: grandson Marital status: / Current occupational status: retired Physical Exam 2 Const: COMMON NORMALS: no acute distress GENERAL APPEARANCE: cooperative and comfortable ORIENTATION/CONSCIOUSNESS: Yes awake, Yes oriented to person, Yes oriented to place and Yes oriented to time HENMT: COMMON NORMALS: normocephalic, atraumatic and hearing grossly normal bilaterally HEAD & SCALP: normocephalic and atraumatic Resp: COMMON NORMALS: normal respiratory effort, No retractions, No use of accessory muscles and clear to auscultation bilaterally AUSCULTATION: clear to auscultation bilaterally Cardio: COMMON NORMALS: regular rate, regular rhythm and No murmurs present (Cardio) RATE: regular rate RHYTHM: regular rhythm GI: COMMON NORMALS: Soft to palpation and No hepatosplenomegaly present A USCULTATION: Yes normoactive bowel sounds PALPATION: Yes Soft to palpation, No Tenderness to palpation present (GI), No Guarding due to palpation present (GI) and Yes No hepatosplenomegaly present Extremity: COMMON NORMALS: normal to inspection, capillary refill normal, no clubbing, cyanosis or edema, no calf tenderness and no pedal edema Neuro: SENSORIUM/ORIENTATION: Yes oriented to person, Yes oriented to place and Yes oriented to time Skin: COMMON NORMALS: no rashes or lesions noted GENERAL SKIN EXAM: no rashes or lesions noted Course 2 Vital Signs: Vital signs: Vital Signs Temperature 97.6 F 05/31/23 15:04 Pulse Rate 72 05/31/23 15:04 Respiratory Rate 17 05/31/23 15:26 Blood Pressure 172/95 05/31/23 15:26 Pulse Oximetry 98 05/31/23 15:26 Oxygen Delivery Me thod Room Air 05/31/23 15:26 MDM - Abdominal Pain Medical Decision Making Initial evaluation shows old compression fractures unchanged. Incidental notation of a large amount of stool there are some mild hematuria CT for renal stone pending. Care signed out to Dr. Dumont at change of shift. See final notes for diagnosis and disposition. Patient presents here with abdominal pain is chronic in nature CT shows constipation patient stable for discharge follow-up with PCP return if worsening. Lab Data 05/31/23 15:28 05/31/23 15:28 Labs/Radiology: Radiology Impressions Lumbar Spine X-Ray 05/31/23 16:10 IMPRESSION: No acute pathology. Thoracic Spine X-Ray 05/31/23 16:10 IMPRESSION: Osteopenia with degenerative change in mild superior endplate compression deformities. No definite interval change compared with lateral chest x-ray of 02/02/2017 given change in technique. CT could be performed for more detailed assessment if clinically warranted. Abdomen/Pelvis CT 05/31/23 17:28 IMPRESSION: 1. Very large amount of colonic stool with diverticulosis but no acute inflammatory change. 2. Minor findings as above. Laboratory Results WBC 8.12 10^3/uL (3.29-11.43) 05/31/23 15:28 RBC 4.39 10^6/uL (3.85-5.65) 05/31/23 15:28 Hgb 14.00 g/dL (11.27-16.99) 05/31/23 15:28 Hct 41.3 % (36-47) 05/31/23 15:28 MCV 94.1 fl (85-98) 05/31/23 15:28 MCH 31.9 pg (27-33) 05/31/23 15:28 MCHC 33.9 g/dL (30-55) 05/31/23 15:28 RDW 11.4 % (12.1-15.1) L 05/31/23 15:28 Plt Count 243 10^3/cmm (157-399) 05/31/23 15:28 MPV 9.2 fL (7.4-10.4) 05/31/23 15:28 Neut % (Auto) 48.7 % 05/31/23 15:28 Lymph % (Auto) 40.4 % 05/31/23 15:28 [place] % (Auto) 8.1 % 05/31/23 15:28 Eos % (Auto) 1.7 % 05/31/23 15:28 Baso % (Auto) 0.9 % 05/31/23: Neut # (Auto) 3.95 10^3/uL (1.8-7.7) 05/31/23: Lymph # (Auto) 3.3 10^3/uL (0.8-4.8) 05/31/23: [place] # (Auto) 0.7 10^3/uL (0.2-0.9) 05/31/23: Eos # (Auto) 0.1 10^3/uL (0.0-0.8) 05/31/23: Baso # (Auto) 0.1 10^3/uL (0.0-0.1) 05/31/23: Nucleated RBC % (auto) 0 % 05/31/23: Nucleated RBCs # 0.0 /100WBC 05/31/23: Sodium 135 mmol/L (136-145) L 05/31/23: Potassium 3.6 mmol/L (3.5-5.1) 05/31/23: Chloride 97 mmol/L (98-107) L 05/31/23: Carbon Dioxide 28 mmol/L (22-29) 05/31/23: Anion Gap 13.6 (5-19) 05/31/23: BUN 15 mg/dL (8-23) 05/31/23 15: Creatinine 0.7 mg/dL (0.5-0.9) 05/31/23: GFR Calculation Not Reportable 05/31/23: Glucose 99 mg/dL (65-115) 05/31/23: Calculated Osmolality 281 mOsm/kg (285-295) L 05/31/23: Calcium 10.4 mg/dL (8.5-10.5) 05/31/23: Magnesium 2.0 mg/dL (1.7-2.3) 05/31/23: Total Bilirubin 0.5 mg/dL (0.15-1.2) 05/31/23 15: AST 23 U/L (0-32) 05/31/23: ALT 14 U/L (0-33) 05/31/23 15:28 Alkaline Phosphatase 57 U/L (35-105) 05/31/23 15:28 Total Protein 7.3 g/dL (6.6-8.7) 05/31/23 15:28 Albumin 4.3 g/dL (3.5-5.2) 05/31/23 15:28 Globulin 3.0 g/dL (1.3-4.6) 05/31/23 15:28 Lipase 32 U/L (13-60) 05/31/23 15:28 Urine Color Colorless (Yellow) 05/31/23 16:54 Urine Appearance Clear (CLEAR) 05/31/23 16:54 Urine pH 8 (5-7) H 05/31/23 16:54 Ur Specific Pipestem 1.010 (1.005-1.030) 05/31/23 16:54 Urine Protein Neg (Negative) 05/31/23 16:54 Urine Glucose (UA) Norm (Normal) 05/31/23 16:54 Urine Ketones Negative (Negative) 05/31/23 16:54 Urine Blood 2+ (Negative) H 05/31/23 16:54 Urine Nitrate Negative (Negative) 05/31/23 16:54 Urine Bilirubin Neg (Negative) 05/31/23 16:54 Prot Sulfosalicylic Acd Negative (Negative) 05/31/23 16:54 Urine Urobilinogen Norm mg/dL (Negative) 05/31/23 16:54 Ur Leukocyte Esterase Negative (Negative) 05/31/23 16:54 Urine RBC 0-4 /hpf (0-2) H 05/31/23 16:54 Urine WBC Rare /hpf (0-5) 05/31/23 16:54 Ur Squamous Epith Cells None /hpf (0-5) 05/31/23 16:54 Amorphous Sediment Not Reportable 05/31/23 16:54 Urine Bacteria Trace /hpf (NONE) 05/31/23 16:54 Discharge Plan Discharge Patient Disposition: Home Clinical Impression: Chronic abdominal pain, Back pain of thoracolumbar region, Constipation Condition: Stable Prescriptions: New Miralax 17 gram powder in packet 17 g PO DAILY PRN (Reason: constipation) Qty: 14 0RF No Action aspirin 81 mg tablet,delayed release (DR/EC) 81 mg PO QAM multivitamin Tablet 1 tab PO DAILY PRN (Reason: unknown) clonazepam [Klonopin] 0.5 mg tablet 0.25 mg PO BID PRN (Reason: stress) Qty: 30 3RF temazepam 15 mg capsule 15 mg PO BEDTIME Qty: 30 5RF omega-3 fatty acids [Fish Oil Concentrate] 1,000 mg Capsule 1,000 mg PO QAM simvastatin 10 mg tablet 10 mg PO EVERY OTHER DAY Glucosamine Chondroitin 550-30-1 mg Capsule 1 cap PO .TWICE A WEEK lisinopril 20 mg tablet 20 mg PO QAM pantoprazole 40 mg tablet,delayed release (DR/EC) 40 mg PO BID hydrochlorothiazide 25 mg tablet 25 mg PO QAM Papaya Enzyme Tablet 1 tab PO .STOP TAKING sucralfate 1 gram tablet 1 g PO QID Discharge Orders: Discharge ED (Routine); Ordered 05/31/23 Ordered By: Elton Fong Referrals: Jesus Joe MD [Primary Care Provider] - Patient Instructions: Abdominal Pain (ED), Opioid Safety, Pain Management Activity Restrictions/Additional Instructions: Thank you for choosing [facility] for your healthcare needs today. Please realize this is an emergency room and that we are providing you with a medical screening exam and this may not be complete and all inclusive of all the testing and or work up that you may need to determine your ailment or severity of your illness. It is very important that you follow up as instructed or that you return to the Emergency Department should you have concerns or if your condition changes or worsens in any way. Coding Level of Care Code ED Senior Regulatory Affairs Specialist for Chg Fwd Documented by User: Bobo Dumont MD 05/31/23 18:17 HPI - Abdominal Pain 2 General: Chief Complaint: Abdominal Pain Stated Complaint: back pain/abd pain Time Seen by Provider: 05/31/23 15:15 PFSH ED 2 PFSH: Medical History Depression Hypertension Arthritis Surgical History Hx of cholecystectomy 06/04/2022 History of hysterectomy Family History Denies family history of Diabetes Social History Smoking and tobacco/nicotine status: never used tobacco/nicotine Alcohol intake: never Substance/Drug Use: never Household members: other Details: grandson Marital status: / Current occupational status: retired Course 2 Vital Signs: Vital signs: Vital Signs Temperature 97.6 F 05/31/23 15:04 Pulse Rate 72 05/31/23 15:04 Respiratory Rate 17 05/31/23 15:26 Blood Pressure 172/95 05/31/23 15:26 Pulse Oximetry 98 05/31/23 15:26 Oxygen Delivery Me thod Room Air 05/31/23 15:26 MDM - Abdominal Pain Medical Decision Making Patient presents here with abdominal pain is chronic in nature CT shows constipation patient stable for discharge follow-up with PCP return if worsening. Medical Records I reviewed the patient's medical records. Lab Data I reviewed the patient's lab results. 05/31/23 15:28 05/31/23 15:28 Labs/Radiology: Radiology Impressions Lumbar Spine X-Ray 05/31/23 16:10 IMPRESSION: No acute pathology. Thoracic Spine X-Ray 05/31/23 16:10 IMPRESSION: Osteopenia with degenerative change in mild superior endplate compression deformities. No definite interval change compared with lateral chest x-ray of 02/02/2017 given change in technique. CT could be performed for more detailed assessment if clinically warranted. Abdomen/Pelvis CT 05/31/23 17:28 IMPRESSION: 1. Very large amount of colonic stool with diverticulosis but no acute inflammatory change. 2. Minor findings as above. Laboratory Results WBC 8.12 10^3/uL (3.29-11.43) 05/31/23 15:28 RBC 4.39 10^6/uL (3.85-5.65) 05/31/23 15:28 Hgb 14.00 g/dL (11.27-16.99) 05/31/23 15:28 Hct 41.3 % (36-47) 05/31/23 15:28 MCV 94.1 fl (85-98) 05/31/23 15: MCH 31.9 pg (27-33) 05/31/23: MCHC 33.9 g/dL (30-55) 05/31/23: RDW 11.4 % (12.1-15.1) L 05/31/23: Plt Count 243 10^3/cmm (157-399) 05/31/23: MPV 9.2 fL (7.4-10.4) 05/31/23: Neut % (Auto) 48.7 % 05/31/23: Lymph % (Auto) 40.4 % 05/31/23: [place] % (Auto) 8.1 % 05/31/23: Eos % (Auto) 1.7 % 05/31/23 Baso % (Auto) 0.9 % 05/31/23 Neut # (Auto) 3.95 10^3/uL (1.8-7.7) 05/31/23: Lymph # (Auto) 3.3 10^3/uL (0.8-4.8) 05/31/23: [place] # (Auto) 0.7 10^3/uL (0.2-0.9) 05/31/23: Eos # (Auto) 0.1 10^3/uL (0.0-0.8) 05/31/23: Baso # (Auto) 0.1 10^3/uL (0.0-0.1) 05/31/23 Nucleated RBC % (auto) 0 % 05/31/23: Nucleated RBCs # 0.0 /100WBC 05/31/23: Sodium 135 mmol/L (136-145) L 05/31/23: Potassium 3.6 mmol/L (3.5-5.1) 05/31/23: Chloride 97 mmol/L (98-107) L 05/31/23: Carbon Dioxide 28 mmol/L (22-29) 05/31/23: Anion Gap 13.6 (5-19) 05/31/23: BUN 15 mg/dL (8-23) 05/31/23 15: Creatinine 0.7 mg/dL (0.5-0.9) 05/31/23 15:28 GFR Calculation Not Reportable 05/31/23 15: Glucose 99 mg/dL (65-115) 05/31/23 15:28 Calculated Osmolality 281 mOsm/kg (285-295) L 05/31/23 15: Calcium 10.4 mg/dL (8.5-10.5) 05/31/23 15: Magnesium 2.0 mg/dL (1.7-2.3) 05/31/23 15: Total Bilirubin 0.5 mg/dL (0.15-1.2) 05/31/23 15: AST 23 U/L (0-32) 05/31/23 15: ALT 14 U/L (0-33) 05/31/23 15: Alkaline Phosphatase 57 U/L (35-105) 05/31/23 15:28 Total Protein 7.3 g/dL (6.6-8.7) 05/31/23 15: Albumin 4.3 g/dL (3.5-5.2) 05/31/23 15: Globulin 3.0 g/dL (1.3-4.6) 05/31/23 15: Lipase 32 U/L (13-60) 05/31/23 15:28 Urine Color Colorless (Yellow) 05/31/23 16:54 Urine Appearance Clear (CLEAR) 05/31/23 16:54 Urine pH 8 (5-7) H 05/31/23 16:54 Ur Specific Pipestem 1.010 (1.005-1.030) 05/31/23 16:54 Urine Protein Neg (Negative) 05/31/23 16:54 Urine Glucose (UA) Norm (Normal) 05/31/23 16:54 Urine Ketones Negative (Negative) 05/31/23 16:54 Urine Blood 2+ (Negative) H 05/31/23 16:54 Urine Nitrate Negative (Negative) 05/31/23 16:54 Urine Bilirubin Neg (Negative) 05/31/23 16:54 Prot Sulfosalicylic Acd Negative (Negative) 05/31/23 16:54 Urine Urobilinogen Norm mg/dL (Negative) 05/31/23 16:54 Ur Leukocyte Esterase Negative (Negative) 05/31/23 16:54 Urine RBC 0-4 /hpf (0-2) H 05/31/23 16:54 Urine WBC Rare /hpf (0-5) 05/31/23 16:54 Ur Squamous Epith Cells None /hpf (0-5) 05/31/23 16:54 Amorphous Sediment Not Reportable 05/31/23 16:54 Urine Bacteria Trace /hpf (NONE) 05/31/23 16:54 All radiology interpretation(s) finalized by discharge Discharge Plan Discharge Patient Disposition: Home Clinical Impression: Chronic abdominal pain, Back pain of thoracolumbar region, Constipation Condition: Stable Prescriptions: New Miralax 17 gram powder in packet 17 g PO DAILY PRN (Reason: constipation) Qty: 14 0RF No Action aspirin 81 mg tablet,delayed release (DR/EC) 81 mg PO QAM multivitamin Tablet 1 tab PO DAILY PRN (Reason: unknown) clonazepam [Klonopin] 0.5 mg tablet 0.25 mg PO BID PRN (Reason: stress) Qty: 30 3RF temazepam 15 mg capsule 15 mg PO BEDTIME Qty: 30 5RF omega-3 fatty acids [Fish Oil Concentrate] 1,000 mg Capsule 1,000 mg PO QAM simvastatin 10 mg tablet 10 mg PO EVERY OTHER DAY Glucosamine Chondroitin 550-30-1 mg Capsule 1 cap PO .TWICE A WEEK lisinopril 20 mg tablet 20 mg PO QAM pantoprazole 40 mg tablet,delayed release (DR/EC) 40 mg PO BID hydrochlorothiazide 25 mg tablet 25 mg PO QAM Papaya Enzyme Tablet 1 tab PO .STOP TAKING sucralfate 1 gram tablet 1 g PO QID Discharge Orders: Discharge ED (Routine); Ordered 05/31/23 Ordered By: Elton Fong Referrals: Jesus Joe MD [Primary Care Provider] - Patient Instructions: Abdominal Pain (ED), Opioid Safety, Pain Management Activity Restrictions/Additional Instructions: Thank you for choosing [facility] for your healthcare needs today. Please realize this is an emergency room and that we are providing you with a medical screening exam and this may not be complete and all inclusive of all the testing and or work up that you may need to determine your ailment or severity of your illness. It is very important that you follow up as instructed or that you return to the Emergency Department should you have concerns or if your condition changes or worsens in any way. Coding Level of Care Code ED Senior Regulatory Affairs Specialist for Malu Simental
--- NOTE | 2023-05-31 16:10 | XRR_ITS ---
PROCEDURE INFORMATION: Exam: XR Thoracic Spine Exam date and time: 05/31/2023 4:42 PM Age: 78 years old Clinical indication: Pain in thoracic spine; Patient HX: Chills, central back pressure/pain (has had gallbladder taken out), several tests at [facility], bile duct stent placed and has done well until may 13 2023, seen Dr meyer, put on carafate and protonix, pain is increasing in time and intensity, was attempting to make it to Thursday, just doesnt feel well, very cold purple hands without HX of cardiac issues, seen in the ED may 16 for chills and numbness in face-told she was hyperventilating- patient continues to have worsening symptoms with intake TECHNIQUE: Imaging protocol: Radiologic exam of the thoracic spine. Views: 3 views. COMPARISON: CR (PELVIS, ) 05/31/2023 4:42 PM FINDINGS: Bones/joints: Mild dextrocurvature midthoracic spine. Osteopenia. Mild degenerative disc disease. Mild superior endplate compression deformities of several adjacent upper thoracic vertebral bodies the numeration of which is limited by technique. These are not significantly changed compared with chest x-ray of 02/02/2017 given technique. Soft tissues: Unremarkable. XR/XR thoracic spine 3V* [id number] IMPRESSION: Osteopenia with degenerative change in mild superior endplate compression deformities. No definite interval change compared with lateral chest x-ray of 02/02/2017 given change in technique. CT could be performed for more detailed assessment if clinically warranted.
--- NOTE | 2023-05-31 16:10 | XRR_ITS ---
PROCEDURE INFORMATION: Exam: XR Lumbosacral Spine Exam date and time: 05/31/2023 4:42 PM Age: 78 years old Clinical indication: Low back pain TECHNIQUE: Imaging protocol: Radiologic exam of the lumbosacral spine. Views: 2 or 3 views. COMPARISON: CT abdomen pelvis w con* [id number] 04/19/2022 12:48 PM FINDINGS: Bones/joints: Osteopenia. Minimal anterolisthesis of L4 on L5. Mild L4-5 degenerative disc disease. No fracture or dislocation. Degenerative changes lower lumbar spine facet joints. Right upper quadrant surgical clips. Soft tissues: Vascular calcifications noted in the soft tissues. Gastrointestinal tract: Large amount of colonic stool. XR/XR lumbar spine 2-3V* [id number] IMPRESSION: No acute pathology.
[2023-05-31 17:25] LABS: Add Urine Microscopic? YES; Bilirubin Urine Neg (Negative); Blood Urine 2+ (Negative); Glucose Urine UA Norm (Normal); Ketones Urine Negative (Negative); Leukocyte Esterase Urine Negative (Negative); Nitrate Urine Negative (Negative); Protein Urine Neg (Negative); Sulfosalicylic Acid Urine Negative (Negative); Urine Appearance Clear (CLEAR); Urine Color Colorless (Yellow); Urobilinogen Urine Norm (Negative); pH Urine 8 (5-7)
[2023-05-31 17:26] LABS: Add Urine Culture? No; Bacteria Urine TRACE /hpf; RBC Urine 0-4 /hpf (0-2); WBC Urine RARE /hpf (0-5)
--- NOTE | 2023-05-31 17:28 | CTR_ITS ---
PROCEDURE INFORMATION: Exam: CT Abdomen And Pelvis Without Contrast Exam date and time: 05/31/2023 5:49 PM Age: 78 years old Clinical indication: Abdominal pain; Flank; Right; Prior surgery; Surgery date: 6+ months; Surgery type: Gb; Additional info: Flank pain TECHNIQUE: Imaging protocol: Computed tomography of the abdomen and pelvis without contrast. Radiation optimization: All CT scans at this facility use at least one of these dose optimization techniques: automated exposure control; mA and/or kV adjustment per patient size (includes targeted exams where dose is matched to clinical indication); or iterative reconstruction. COMPARISON: CT abdomen pelvis w con* [id number] 04/19/2022 12:48 PM RADIATION DOSE METRICS: Total DLP (mGy-cm): 326.53 FINDINGS: Lungs: Subpleural calcifications at the right lung base and basilar pulmonary micronodules consistent with benign pathology are unchanged (example left lower lobe series 3, image 20). Heart: Mitral valvular calcifications noted. Small pericardial effusion. Liver: Hepatic steatosis. Gallbladder and bile ducts: Prior cholecystectomy. Common bile duct is dilated measuring up to 1.2 cm with no obstructing lesion visualized. This measurement is top limits of normal given prior cholecystectomy and patient's age. Pancreas: No significant pancreatic pathology. Spleen: No significant splenic pathology. Adrenal glands: No significant adrenal pathology. Kidneys and ureters: No significant pathology. Stomach and bowel: Very Large amount of colonic stool. Colonic diverticulosis without evidence of focal inflammatory change. Appendix: Appendix within normal limits. Intraperitoneal space: No ascites. 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 No abdominal aortic aneurysm. Lymph nodes: No enlarged nodes by criteria. Urinary bladder: No urinary calculus or upper tract obstruction. Unremarkable urinary bladder. Reproductive: Prior hysterectomy. No significant adnexal pathology. Bones/joints: No significant bony pathology. Soft tissues: Unremarkable. CT/CT kidney stone [id number] IMPRESSION: 1. Very large amount of colonic stool with diverticulosis but no acute inflammatory change. 2. Minor findings as above.
== END 2023-05-31 18:38 | disposition home or self-care (01) ==
PROVIDERS: Family Medicine; Emergency Provider Emergency Medicine; PCP Family Medicine
DX: G89.29 Other chronic pain (principal); R10.9 Unspecified abdominal pain; M54.6 Pain in thoracic spine; M54.50 Low back pain, unspecified; K59.00 Constipation, unspecified
CPT/HCPCS: 36415; 72072; 72100; 74176; 80053; 81001; 83690; 83735; 85025; 93005; 99285

== ENCOUNTER 2023-06-09 13:03 | Outpatient (CLI) | payer MEDICARE, SELFPAY ==
--- NOTE | 2023-06-09 13:07 | XRR_ITS ---
PROCEDURE INFORMATION: Exam: XR Abdomen Exam date and time: 06/09/2023 1:12 PM Age: 78 years old Clinical indication: Constipation; Prior surgery; Surgery date: 6+ months; Surgery type: Gb TECHNIQUE: Imaging protocol: Radiologic exam of the abdomen. Views: Frontal supine view of the abdomen. 1 View. COMPARISON: CT kidney stone [id number] 05/31/2023 5:49 PM FINDINGS: Gastrointestinal tract: No bowel obstruction or free air. Moderate amount of stool throughout the colon suggests constipation. Intraperitoneal space: Surgical clips in the right upper quadrant. Vasculature: Several small calcifications in the pelvis are highly likely to be phleboliths. However, in the proper clinical setting a distal ureteral calculus may need to be considered. Arterial calcification. 1 cm left renal artery aneurysm. Bones/joints: Mild scoliosis with mild multilevel spondylosis XR/XR KUB [id number] IMPRESSION: 1. Probable constipation. 2. Additional details as above.
== END 2023-06-09 13:04 | disposition home or self-care (01) ==
PROVIDERS: PCP Family Medicine; Visit Provider Family Medicine
DX: K59.00 Constipation, unspecified (principal); Z90.49 Acquired absence of other specified parts of digestive tract
CPT/HCPCS: 74018

== ENCOUNTER → 2023-07-22 13:04 | Outpatient (BNVA) | payer MEDICARE, SELFPAY | PROVIDERS: PCP Family Medicine; Visit Provider Surgery | DX: Z12.11 Encounter for screening for malignant neoplasm of colon (principal) | CPT/HCPCS: 99024; 99204 ==

== ENCOUNTER 2023-10-01 05:51 | Day surgery (SDC) | payer MEDICARE, SELFPAY ==
--- NOTE | 2023-10-01 05:56 | W.PM.OPSFHP ---
Same Day Surgery H&P Indication for Procedure/HPI DATE OF PROCEDURE: October 01, 2023 CHIEF COMPLAINT/INDICATIONFOR SURGICAL PROCEDURE: constipation and abdominal pain PREOP DIAGNOSIS: abdominal pain PLANNED PROCEDURE: Operation Date: 10/01/23 07:00 Proposed Procedures p Colonoscopy(Not Applicable) - Jostin Land MD Medications/Allergies* Home Medications Medication Instructions Recorded Confirmed Type aspirin 81 mg tablet,delayed 81 mg PO QAM 12/01/19 09/29/23 History release multivitamin 1 tab PO DAILY PRN unknown 12/13/20 09/29/23 History glucosamine sulf dipot 1 cap PO .TWICE A WEEK 05/16/23 09/29/23 History chlr,msm,chond 550 mg-C 30 mg-leif 1 mg capsule (Glucosamine Chondroitin) omega-3 fatty acids 1,000 mg 1,000 mg PO QAM 05/16/23 09/29/23 History capsule carica papaya (Papaya Enzyme 1 tab PO .STOP TAKING 05/31/23 09/29/23 History tablet) Lactobacillus rhamnosus GG 20 1 cell PO DAILY 07/08/23 09/29/23 History billion cell capsule (Probiotic Digestive Care) Allergies/Adverse Reactions Allergy/AdvReac Type Severity Reaction Status Date / Time codeine Allergy ADR-Swelling Verified 09/03/23 09:54 of the Eye Pertinent History/Comorbid Conditions* Medical History (Updated 08/05/23 @ 13:50 by True Gamez MD) Depression Hypertension Arthritis Surgical History (Updated 08/14/22 @ 09:55 by Jesus Joe MD) Hx of cholecystectomy 06/04/2022 History of hysterectomy Family History (Updated 12/01/19 @ 09:10 by Kiara Dubose LPN) Denies family history of Diabetes Social History Smoking and tobacco/nicotine status: never used tobacco/nicotine Alcohol intake: never Substance/Drug Use: never Household members: other Details: grandson Marital status: / Current occupational status: retired Pertinent Exam Findings alert, oriented x 3, clear to auscultation bilaterally and regular rate & rhythm Recommendations Surgery/Procedure today Coding Level of Care Code Acute Code for Chg Fwd
[2023-10-01 06:02] VITALS: BMI 21.4
[2023-10-01 06:10] VITALS: BP 128/82; PULSE 68; RESP 20; TEMP 36.6; O2SAT 100
[2023-10-01] MEDS: sodium chloride 0.9% 1,000 ML 30 ML IV (06:16)
--- NOTE | 2023-10-01 06:31 | ANES.PREANE2 ---
Pre-Anesthetic Assessment Height/Weight: Height 1.57 m Weight 53.07 kg Temp Pulse Resp BP Pulse Ox O2 Del Method 98 F 68 20 H 128/82 100 Room Air 10/01/23 06:10 10/01/23 06:10 10/01/23 06:10 10/01/23 06:10 10/01/23 06:10 10/01/23 06:10 Preop Diagnosis: abdominal pain Operation Date: 10/01/23 07:00 Proposed Procedures p Colonoscopy(Not Applicable) - Jostin Land MD Familial anesthetic complications: None Was Beta William taken within 24 hours: N/A Was Clonidine taken within 24 hours: N/A Last intake: Intake Last Liquid Date 09/30/23 Last Liquid Time 19:30 Last Solid Date 09/28/23 Last Solid Time 18:00 Social No alcohol and No tobacco Exam alert, oriented x 3, clear to auscultation bilaterally and regular rate & rhythm Airway Submandibular: within normal limits (TMJ) Cervical ROM: within normal limits Mallampati: Class II Dentition: full History/ROS No significant history except as noted and No significant complaints Pulmonary None reported CV/HEM Hypertension None reported Hepatic None reported GI ERCP, stent removed in March 2023 Pancreatic cysts Abdominal pain Metabolic Hyperlipidemia Musc/skel Lower Back Pain and Osteoarthritis/DJD Neuropsych Anxiety and Neuropathy Anesthetic Plan ASA status: 2 Anesthesia: Anesthesia Evaluation, General and MAC Risk of > 500 ml blood loss (7ml/kg in children): No Medications/Allergies Home Medications Medication Instructions Recorded Confirmed Last Taken Type aspirin 81 mg tablet,delayed 81 mg PO QAM 12/01/19 09/29/23 09/28/23 History release multivitamin 1 tab PO DAILY PRN unknown 12/13/20 09/29/23 09/28/23 History clonazepam 0.5 mg tablet (Klonopin) 0.25 mg (1/2 x 0.5 mg) PO BID PRN 11/24/22 09/29/23 09/28/23 Rx stress #30 tabs glucosamine sulf dipot 1 cap PO .TWICE A WEEK 05/16/23 09/29/23 09/28/23 History chlr,msm,chond 550 mg-C 30 mg-leif 1 mg capsule (Glucosamine Chondroitin) omega-3 fatty acids 1,000 mg 1,000 mg PO QAM 01/11/0109/29/23 09/28/23 History capsule carica papaya (Papaya Enzyme 1 tab PO .STOP TAKING 05/31/23 09/29/23 09/28/23 History tablet) Lactobacillus rhamnosus GG 20 1 cell PO DAILY 07/08/23 09/29/23 09/28/23 History billion cell capsule (Probiotic Digestive Care) simvastatin 10 mg tablet 10 mg PO EVERY OTHER DAY #90 tabs 07/25/23 09/29/23 09/29/23 Rx amlodipine 5 mg tablet (Norvasc) 5 mg PO DAILY #90 tabs 08/05/23 09/29/23 09/30/23 Rx lisinopril 20 mg tablet 20 mg PO DAILY #90 tabs 09/03/23 09/29/23 09/30/23 Rx zolpidem 5 mg tablet (Ambien) 5 mg PO .qhs #30 tabs 09/03/23 09/29/23 09/30/23 Rx Allergies Allergy/AdvReac Type Severity Reaction Status Date / Time codeine Allergy ADR-Swelling Verified 09/03/23 09:54 of the Eye Current Medications Generic Name Dose Route Start Last Admin Trade Name Freq PRN Reason Stop Dose Admin Sodium Chloride 1,000 mls @ 30 mls/hr 10/01/23 06:00 10/01/23 06:16 Sodium Chloride 0.9% IV 10/02/23 05:59 30 mls/hr .Q24H LETITIA Administration PFSH Anesthesia Medical History Depression Hypertension Arthritis Surgical History Hx of cholecystectomy 06/04/2022 History of hysterectomy Family History Denies family history of Diabetes Social History Smoking and tobacco/nicotine status: never used tobacco/nicotine Alcohol intake: never Substance/Drug Use: never Household members: other Details: grandson Marital status: / Current occupational status: retired Data Anesthesia Cardiac Studies: No Data to Display
[2023-10-01 07:47] VITALS: BP 104/60; PULSE 59; RESP 18; TEMP 36.6; O2SAT 99
[2023-10-01 07:57] VITALS: BP 117/76; PULSE 64; RESP 18; O2SAT 99
[2023-10-01 08:09] VITALS: BP 112/71; PULSE 62; RESP 18; O2SAT 99
--- NOTE | 2023-10-01 08:25 | ANE.PACU2 ---
Inpatient post-anesthesia follow up: Airway intact: Yes Vital signs: Temperature 97.8 F Pulse Rate 62 Respiratory Rate 18 Blood Pressure 112/71 Pulse Oximetry 99 Oxygen Delivery Me thod Room Air Oxygen Flow Rate Fraction of Inspir ed Oxygen Hydration adequate: Yes Nausea and vomiting: No Pain level: 1 Mental status: Baseline
== END 2023-10-01 08:25 | disposition home or self-care (01) ==
PROVIDERS: PCP Family Medicine; Visit Provider Surgery
PROC: 0DJD8ZZ Inspection of Lower Intestinal Tract, Via Natural or Artificial Opening Endoscopic (ICD-10-PCS; CPT 45378; principal; 2023-10-01 07:00)
DX: Z12.11 Encounter for screening for malignant neoplasm of colon (principal); K57.30 Diverticulosis of large intestine without perforation or abscess without bleeding; D12.8 Benign neoplasm of rectum; I10 Essential (primary) hypertension; E78.5 Hyperlipidemia, unspecified; Z79.82 Long term (current) use of aspirin; M19.90 Unspecified osteoarthritis, unspecified site
CPT/HCPCS: 45380; 88305; J2704; J7030

== ENCOUNTER → 2023-10-04 17:45 | Outpatient (BNVA) | payer MEDICARE, SELFPAY | PROVIDERS: PCP Family Medicine; Visit Provider Emergency Medicine | DX: R39.9 Unspecified symptoms and signs involving the genitourinary system (principal) | CPT/HCPCS: 81000; 87086 ==

== ENCOUNTER 2023-10-14 11:18 | Outpatient (CLI) | payer MEDICARE, SELFPAY | END 2023-10-14 11:19 | disposition home or self-care (01) | LOC: LAB 11:20 | PROVIDERS: PCP Family Medicine; Visit Provider Surgery | DX: Z09 Encounter for follow-up examination after completed treatment for conditions other than malignant neoplasm (principal); N39.0 Urinary tract infection, site not specified | CPT/HCPCS: 81001; 99213 ==

== ENCOUNTER → 2024-01-08 11:00 | Outpatient (BNVA) | payer MEDICARE, SELFPAY | PROVIDERS: PCP Family Medicine; Visit Provider Family Medicine | DX: E88.09 Other disorders of plasma-protein metabolism, not elsewhere classified (principal) | CPT/HCPCS: 80053; 84439; 84443; 85025 ==

== ENCOUNTER → 2024-01-24 13:45 | Outpatient (BNVA) | payer MEDICARE, SELFPAY | PROVIDERS: PCP Family Medicine; Visit Provider Emergency Medicine | DX: R39.9 Unspecified symptoms and signs involving the genitourinary system (principal) | CPT/HCPCS: 81000 ==

== ENCOUNTER → 2024-07-18 14:22 | Outpatient (BNVA) | payer MEDICARE, SELFPAY | PROVIDERS: PCP Family Medicine; Visit Provider Nurse Practitioner Family | DX: D18.01 Hemangioma of skin and subcutaneous tissue (principal); L72.0 Epidermal cyst; L82.1 Other seborrheic keratosis; Z08 Encounter for follow-up examination after completed treatment for malignant neoplasm; Z85.828 Personal history of other malignant neoplasm of skin; L82.0 Inflamed seborrheic keratosis; L29.89 Other pruritus; R20.8 Other disturbances of skin sensation; L53.8 Other specified erythematous conditions; Z78.9 Other specified health status; L57.0 Actinic keratosis | CPT/HCPCS: 17000; 17110; 99203 ==

== ENCOUNTER → 2025-01-12 11:20 | Outpatient (BNVA) | payer MEDICARE, SELFPAY | PROVIDERS: PCP Family Medicine; Visit Provider Family Medicine | DX: E88.09 Other disorders of plasma-protein metabolism, not elsewhere classified (principal) | CPT/HCPCS: 86003; 86008 ==